=== PATIENT | female | born 1955 | race Caucasian/White ===

== ENCOUNTER → 2018-08-09 | Outpatient (CLI) | payer BC ==
[~2018-08-09] MED LIST: BACL10TA PO; CARI350T PO; CELE200C PO; CHOL100013 PO; CLON0.3T PO; DULO20CA PO; HYDR-963 PO; HYDR-971 PO; HYDR30CA3 PO; HYDR50CA PO; IOHEXOL 180 MG/ML 10 ML VIAL. ONE; LIDOCAINE 2% PF 2ML VIAL. ONE; LOSA100T7 PO; METH10TA2 PO; OMEG500C PO; OXYM10TA3 PO; TIZA4CAP3 PO; methylPREDNISolone ACETATE 40 MG/ML VIAL. ONE; methylPREDNISolone ACETATE 80 MG/ML VIAL. ONE
--- NOTE | 2018-08-09 12:59 | PAIN ---
DATE OF SERVICE: 08/09/2018 DIAGNOSES: Lumbar radiculopathy with lumbar spondylosis and post-lumbar laminectomy syndrome. HISTORY OF PRESENT ILLNESS: The patient is a 62-year-old female who returns for followup status post lumbar epidural steroid injections, last seen 08/2016. The patient did very well with her last injection, but reports the pain is returning now in the low back and mainly in the right leg, posterior gluteus, posterior thigh, posterior calf, worse with standing, walking, changing positions described as stabbing, aching, burning, radiating, becoming more constant and more severe and more unbearable. The patient did have an MRI scan dated 06/12/2018 showing L5-S1 generalized disk bulge, slightly asymmetric to the right and mild bilateral facet arthropathy and ligamentum flavum hypertrophy without central stenosis. L4-L5 shows generalized disk bulge and mild bilateral facet arthropathy and ligamentum flavum hypertrophy as well with mild bilateral neural foraminal stenosis. The patient reports it is worse with walking, standing, changing positions; awakens her from sleep about every 4 hours at night. The patient reports she can easily reposition and get back to sleep. She works no new motor or sensory deficits, no new bowel or bladder incontinence, but still significant pain as described. PHYSICAL EXAMINATION: VITAL SIGNS: The patient's blood pressure 146/95, pulse 81, respirations 20, temperature is 98.2 degrees Fahrenheit, height is 5 feet 5 inches, weight is 156 pounds. GENERAL: She is awake, alert, oriented, appropriate, very pleasant demeanor. HEENT: Head shows normocephalic, atraumatic. Extraocular muscles are intact and symmetrical. Oral cavity: Mucous membranes moist and pink. Dentition is intact. NECK: Shows anterior throat supple without palpable lymphadenopathy noted. Swallow reflex is symmetrical. CHEST: Shows normal on inspection. Breath sounds clear to auscultation bilaterally. HEART: Shows S1, S2 clear. No murmurs auscultated. ABDOMEN: Soft, nontender, nondistended. No palpable organomegaly is noted. No rebound or guarding demonstrated. BACK: Shows spine grossly in the midline. Normal appearing thoracic kyphosis and some slight flattening of lumbar lordotic curvature. Well-healed surgical scar noted in the lumbar distribution. Lumbar paraspinous musculature shows symmetrical on inspection, on palpation shows some moderate tenderness bilaterally but only diffusely without radiation. EXTREMITIES: The patient's lower extremities show deep tendon reflexes at 1+ in the patellar and tendo calcaneus tendons. Motor exam is strong with 5/5 dorsiflexion and extension, quadriceps and hamstring flexion equal bilaterally. Peripheral pulses are 1+ posterior tibial. No peripheral edema is noted. Options were discussed with the patient. The patient's old chart was reviewed as her current medication regimen and updated. Current review of systems is updated today as well. We will proceed with a lumbar epidural steroid injection today with fluoroscopic guidance. Risks were again discussed including, but not limited to bleeding, infection, possibility of epidural hematoma and subsequent neurological compromise, dural punctures, headaches, spinal cord and/or nerve damage, side effects of steroid medication and poor results regarding pain control. The patient understands and wished to proceed. The patient to return to clinic in approximately 2 weeks for followup. She was counseled to return appointment, activity level and side effects to be aware of. DIAGNOSES: Lumbar radiculopathy with lumbar spondylosis, lumbar post-laminectomy syndrome and degenerative disk disease, lumbar. PROCEDURE: Lumbar epidural steroid injection, translaminar approach L5-S1 level using C-arm fluoroscopic guidance under sterile prep and drape using local anesthetic. MEDICATION INJECTED: A total of 120 mg of Depo-Medrol plus 10 mL of preservative-free normal saline and 2 mL of Isovue for contrast. CONDITION AT DISCHARGE: Stable. The patient tolerated procedure well, had no complications. RICO LEWIS MD DR: MARIANNA/jeni JOB#: [id number] / [id number]
== END | disposition home or self-care (01) ==
LOC: PNCL 07:55
PROVIDERS: ATTEND Anesthesiology
DX: M51.16 Intervertebral disc disorders with radiculopathy, lumbar region (principal); M47.816 Spondylosis without myelopathy or radiculopathy, lumbar region; M96.1 Postlaminectomy syndrome, not elsewhere classified; Z91.040 Latex allergy status
CPT/HCPCS: 62323; J1030; J1040; J2001; Q9965

== ENCOUNTER → 2018-08-23 | Outpatient (CLI) | payer BC ==
--- NOTE | 2018-08-23 15:12 | PAIN ---
DATE OF SERVICE: 08/23/2018 DIAGNOSES: Lumbar radiculopathy with lumbar spondylosis and lumbar degenerative disk disease and post-lumbar laminectomy syndrome. HISTORY OF PRESENT ILLNESS: The patient is a 63-year-old female who returns for followup status post lumbar epidural steroid injection x 1. The patient reports about 50% improvement for the first week, and the pain has been returning gradually in the low back, right greater than left lower extremity, posterior gluteus, posterior thigh, radiating to the posterior lower leg occasionally, worse with walking, standing, changing positions, better with sitting or lying down, but awakens her from sleep occasionally, but only once about every 5 hours or so. Otherwise, she sleeps fairly well. The patient reports pain is 8 on a scale of 10 at its worst, average and least and is an 8 today. Describes as aching, sharp, shooting, stabbing, radiating, becoming more constant, more severe, but again the first week doing much better, about 50%. The patient has increased activity, distance walking as well as doing household activities with greater ease and comfort. PHYSICAL EXAMINATION: VITAL SIGNS: Today, the patient's blood pressure 152/81, pulse is 64, respirations 16, temperature 97.5 degrees Fahrenheit, height is 5 feet 5 inches and weight is 154 pounds. GENERAL: The patient is awake, alert, oriented, appropriate, very pleasant demeanor. HEENT: Head shows normocephalic, atraumatic. Extraocular movements intact and symmetrical. Oral cavity: Mucous membranes moist and pink. Dentition is intact. NECK: Shows anterior throat supple without palpable lymphadenopathy noted. Swallow reflex is symmetrical. CHEST: Shows normal with inspection. Breath sounds clear to auscultation bilaterally. HEART: Shows S1, S2 clear. No murmurs auscultated. ABDOMEN: Soft, nontender, nondistended. No palpable organomegaly is noted. No rebound or guarding demonstrated. BACK: Shows spine grossly in the midline. Normal appearing thoracic kyphosis and minor flattening of lumbar lordotic curvature. Well-healed surgical scar noted. Lumbar distribution of the paraspinous muscle shows symmetrical on inspection, on palpation shows some moderate tenderness but only diffusely bilaterally without radiation. No tenderness over the sacrum or sacroiliac regions. The patient has good rotational motion of the lumbar spine, both laterally as well as extension and flexion without difficulty. EXTREMITIES: The patient's lower extremities show deep tendon reflexes 1+ in the patellar and tendo calcaneus tendons are equal. Motor exam is strong with 5/5 dorsiflexion, extension, quadriceps and hamstring flexion. Peripheral pulses are 1+ posterior tibia. No peripheral edema is noted. Options were discussed with the patient, the patient's old chart was reviewed as her current medication regimen updated. Current review of systems updated today as well. We will proceed with a second in the series of lumbar epidural steroid injection today with fluoroscopic guidance. Risks were again discussed including, but not limited to bleeding, infection, possibility of epidural hematoma, subsequent neurological compromise, dural puncture, headaches, spinal cord and/or nerve damage, side effects of steroid medication and poor results regarding pain control. The patient understands and wished to proceed. The patient to return to clinic in approximately 2 weeks for followup, was counseled on return appointment, activity level and side effects to be aware of. DIAGNOSES: Lumbar radiculopathy with lumbar spondylosis, lumbar degenerative disk disease, post-lumbar laminectomy syndrome. PROCEDURE: Lumbar epidural steroid injection, translaminar approach at L5-S1 level using C-arm fluoroscopic guidance under sterile prep and drape using local anesthetic. MEDICATION INJECTED: A total of 120 mg Depo-Medrol, plus 10 mL preservative-free normal saline and 2 mL of Isovue for contrast. CONDITION AT DISCHARGE: Stable. The patient tolerated procedure well, had no complications. RICO LEWIS MD DR: MARIANNA/jeni JOB#: [id number] / [id number]
== END | disposition home or self-care (01) ==
LOC: PNCL 07:55
PROVIDERS: ATTEND Anesthesiology
DX: M51.16 Intervertebral disc disorders with radiculopathy, lumbar region (principal); M47.26 Other spondylosis with radiculopathy, lumbar region; M96.1 Postlaminectomy syndrome, not elsewhere classified; Z91.040 Latex allergy status
CPT/HCPCS: 62323; J1030; J1040; J2001; Q9965

== ENCOUNTER → 2018-09-06 | Outpatient (CLI) | payer BC ==
[~2018-09-06] MED LIST changes: +LIDOCAINE 1% PF 2 ML VIAL. ONE; -LIDOCAINE 2% PF 2ML VIAL. ONE; +LOSA50TA7 PO
--- NOTE | 2018-09-07 00:16 | PAIN ---
DATE OF SERVICE: 09/06/2018 DIAGNOSES: Lumbar radiculopathy with lumbar spondylosis, lumbar degenerative disk disease and post-lumbar laminectomy syndrome. HISTORY OF PRESENT ILLNESS: The patient is a 63-year-old female who returns for followup status post lumbar epidural steroid injection x 2. The patient reports about 70% improvement for the first week or so, but the pain returning in the low back, bilateral lower extremities, mostly in the posterior gluteus, posterior thighs, posterior calves, slightly worse on the right than the left than it had been previously. The patient reports it is an 8 on a scale of 10 at its worst, on average and at its least and is an 8 today. The patient reports it is aching, sharp, shooting, stabbing, cramping, tingling, radiating, becoming more constant, more severe, worse with walking, standing, change in positions, awakens her from sleep about every 3-5 hours, but not every night. The patient reports no new motor or sensory deficits. No new bowel or bladder incontinence or other complaints. PHYSICAL EXAMINATION: VITAL SIGNS: The patient's blood pressure is 144/102, pulse 81, respirations 16, temperature is 97.4 degrees Fahrenheit, height is 5 feet 5 inches, weight is 153 pounds. GENERAL: The patient is awake, alert, oriented, appropriate, very pleasant demeanor. HEENT: Shows normocephalic, atraumatic. Extraocular movements intact and symmetrical. Oral cavity: Mucous membranes moist and pink. Dentition is intact. NECK: Shows anterior throat supple without palpable lymphadenopathy noted. Swallow reflex symmetrical. CHEST: Shows normal on inspection. Breath sounds are clear to auscultation bilaterally. HEART: Shows S1, S2 clear. No murmurs auscultated. ABDOMEN: Soft, nontender, nondistended. No palpable organomegaly is noted. No rebound or guarding demonstrated. BACK: Shows spine grossly in the midline. Normal appearing thoracic kyphosis and some minor flattening of lumbar lordotic curvature. Lumbar paraspinous muscle shows symmetrical on inspection. With palpation shows some moderate tenderness diffusely in the low lumbar distribution only. The patient has well-healed surgical scar in the lumbar spine as well. EXTREMITIES: The patient's lower extremities show deep tendon reflexes about 1+ in the patellar and tendo calcaneus tendons. Motor exam is strong with 5/5 dorsiflexion, extension, quadriceps and hamstring flexion and symmetrical. Peripheral pulses are 1+ posterior tibia. No peripheral edema is noted. Options were discussed with the patient. The patient's old chart was reviewed as is her current medication regimen updated. Current review of systems is updated today as well. We will proceed with third in the series of lumbar epidural steroid injection today with fluoroscopic guidance. Risks were again discussed including, but not limited to bleeding, infection, possibility of epidural hematoma and subsequent neurological compromise, dural puncture, headaches, spinal cord and/or nerve damage, side effects of steroid medication and poor results regarding pain control. The patient understands and wished to proceed. The patient will return to the clinic in approximately 2 weeks for followup, was counseled on return appointment, activity level and side effects to be aware of. DIAGNOSES: Lumbar radiculopathy with lumbar spondylosis, degenerative disk disease and post-lumbar laminectomy syndrome. PROCEDURE: Lumbar epidural steroid injection, translaminar approach at L5-S1 using C-arm fluoroscopic guidance under sterile prep and drape using local anesthetic. MEDICATION INJECTED: A total of 120 mg Depo-Medrol plus 10 mL of preservative-free normal saline and 2 mL of Isovue for contrast. CONDITION AT DISCHARGE: Stable. The patient tolerated procedure well, had no complications. RICO LEWIS MD DR: MARIANNA/jeni JOB#: [id number] / [id number]
== END | disposition home or self-care (01) ==
LOC: PNCL 09:03
PROVIDERS: ATTEND Anesthesiology
DX: M51.16 Intervertebral disc disorders with radiculopathy, lumbar region (principal); M96.1 Postlaminectomy syndrome, not elsewhere classified; M47.26 Other spondylosis with radiculopathy, lumbar region; Z91.040 Latex allergy status
CPT/HCPCS: 62323; J1030; J1040; Q9965

== ENCOUNTER → 2018-09-27 | Outpatient (CLI) | payer BC ==
[~2018-09-27] MED LIST changes: -IOHEXOL 180 MG/ML 10 ML VIAL. ONE; -LIDOCAINE 1% PF 2 ML VIAL. ONE; -methylPREDNISolone ACETATE 40 MG/ML VIAL. ONE; -methylPREDNISolone ACETATE 80 MG/ML VIAL. ONE
--- NOTE | 2018-09-27 17:03 | PAIN ---
DATE OF SERVICE: 09/27/2018 PROGRESS NOTE FOR PAIN CLINIC DIAGNOSES: Lumbar radiculopathy with lumbar spondylosis and lumbar degenerative disk disease and post-lumbar laminectomy syndrome. HISTORY OF PRESENT ILLNESS: The patient is a 63-year-old female who returns for followup status post lumbar epidural steroid injections, most recently seen on 09/06/2018. The patient did well initially, but reports the pain is returning now and has changed to some extent with no longer radiating to the lower extremities, but staying in the low back, primarily right and left, essentially equal. The patient reports it is worse with walking, twisting, bending and even prolonged sitting can bother. It awakens her from sleep about every 4-5 hours. She can usually reposition and get back to sleep. The patient reports pain is 8 on a scale of 10 at its worst, average and at its least and is an 8 today. The patient reports tingling, stabbing, aching, sharp, dull, radiating at some times, constant, severe, shooting and becoming unbearable in the low back itself. It is worse with extension and axial loading of the lumbar spine as well as right and left lateral rotation, she feels the pain as well. The patient reports no new motor or sensory deficits, no new bowel or bladder incontinence or other complaints. PHYSICAL EXAMINATION: VITAL SIGNS: The patient's blood pressure 149/87, pulse 87, respirations 18, temperature 97.5 degrees Fahrenheit, height is 5 feet 5 inches, weighs 155 pounds. GENERAL: The patient is awake, alert, oriented, appropriate, very pleasant demeanor. HEENT: Head shows normocephalic and atraumatic. Extraocular movements are intact and symmetrical. Oral cavity: Mucous membranes moist and pink. Dentition is intact. NECK: Shows anterior throat supple without palpable lymphadenopathy noted. Swallow reflex is symmetrical. CHEST: Shows normal with inspection. Breath sounds are clear to auscultation bilaterally. HEART: Shows S1, S2 clear. No murmurs auscultated. ABDOMEN: Soft, nontender, nondistended. No palpable organomegaly is noted. No rebound or guarding demonstrated. BACK: Shows spine grossly in the midline. Normal appearing thoracic kyphosis and lumbar lordotic curvature. Lumbar paraspinous musculature shows symmetrical on inspection. Also, well-healed surgical scar noted. On palpation, there is some moderate tenderness, but only diffusely in the low lumbar distribution without radiation. The patient has good rotational motion, but with some moderate tenderness in right and left, greater than 10 degrees as well as significant pain with extension bilaterally, at better with decreased pain with forward flexion at 45 degrees, which she performs without difficulty. EXTREMITIES: The patient's lower extremities show deep tendon reflexes 1+ in the patellar and tendo-calcaneus tendons. Motor examination is strong with 5/5 with dorsiflexion and extension. Quadriceps and hamstring flexion symmetrical. Peripheral pulses are 1+ posterior tibial. No peripheral edema is noted bilaterally. PLAN: Options were discussed with the patient. The patient's old chart was reviewed as her current medication regimen updated. Current review of systems updated today as well. We will try Medrol Dosepak. In the meantime, she would also like to consider lumbar facet joint injection. We discussed these in some detail as well as she does have some significant axial pain characteristics especially with axial loading and extension of the lumbar spine with exacerbation of the pain. The patient would like to consider this. We will let her try the Medrol Dosepak as she does not feel well to have an injection this morning and we will have her return in approximately 1 week and plan on bilateral L4-L5 and L5-S1 facet joint injections at that time. RICO LEWIS MD DR: MARIANNA/jeni JOB#: [id number] / [id number]
== END | disposition home or self-care (01) ==
LOC: PNCL 07:53
PROVIDERS: ATTEND Anesthesiology
DX: M51.16 Intervertebral disc disorders with radiculopathy, lumbar region (principal); M47.896 Other spondylosis, lumbar region; M96.1 Postlaminectomy syndrome, not elsewhere classified
CPT/HCPCS: 99212